=== PATIENT | female | born 1955 | race American Indian/Alaskan Native ===

== ENCOUNTER 2017-02-04 21:26 | Emergency (ER) | payer MEDICARE, OTHER ==
[2017-02-04] MEDS ORDERED: PEPCID IV ONE (22:35)
[2017-02-04] MEDS ORDERED: ZOFRAN IV ONE (22:35)
[2017-02-04] MEDS ORDERED: BENTYL PO ONE (22:35)
[2017-02-04] MEDS ORDERED: CARAFATE PO ONE (22:35)
[2017-02-04] MEDS ORDERED: NACL 0.9% 1000 ML 1,000 ML IV ONE (22:36)
--- NOTE | 2017-02-04 22:37 | Emergency Department Report ---
ED General Adult HPI - General Chief complaint: Weakness Stated complaint: DIZZINESS/DIARRHEA Time Seen by Provider: 02/04/17 22:21 Source: patient, family, EMS (ems notes not available at time of chart dictation) Mode of arrival: Ambulatory Limitations: No Limitations - History of Present Illness Initial comments: This is a 62-year-old female, she is previously unknown to this provider. She reports a past medical history of high cholesterol. The patient presents to the ER with EMS. Patient reports that she was out eating dinner this evening, felt like she had to sneeze, and then developed a strange pressure-like sensation over her head. It was all over the head, it was not painful, it is not described as sudden or intense. She reports that afterwards, she felt generally weak and "woozy", and needed help to go to the bathroom. She indicates she did not pass out or lose consciousness. Patient also indicates there is no convulsive activity. Patient further elaborates and states that last week she began to develop epigastric and lower abdominal cramping discomfort. This discomfort is intermittent, does not have exacerbating or relieving factors, does not radiate anywhere. She denies nausea and vomiting initially. She reports going to an outpatient urgent care center, reports having blood work and urinalysis done, and reports that her blood work revealed the presence of H. pylori. She reports that on Saturday she was started on 2 antibiotics, amoxicillin, and another antibiotic that she cannot recall the name of. She reports that she was fine over the weekend, and then this morning, develops episode of loose watery stool, nonbloody and nonbilious. There is no leg pain, there is no leg swelling, there is no chest pain, there is no shortness of breath, patient describes mild nausea at this time, mild lightheadedness, mild generalized weakness. -: Sudden Location: abdomen Quality: aching Consistency: intermittent Improves with: none Worsens with: none Associated Symptoms: loss of appetite, malaise, nausea/vomiting, weakness - Related Data Home Medications Medication Instructions Recorded Confirmed Last Taken Amoxicillin 500 mg PO 02/04/17 Unknown Clarithromycin [Biaxin] 02/04/17 Unknown Omeprazole 40 mg PO 02/04/17 Unknown Previous Rx's Medication Instructions Recorded Last Taken Type Dicyclomine [Bentyl] 10 mg PO QID PRN #20 capsule 02/05/17 Unknown Rx Ondansetron [Zofran Odt] 4 mg PO QID PRN #20 tab.rapdis 02/05/17 Unknown Rx Allergies Allergy/AdvReac Type Severity Reaction Status Date / Time No Known Allergies Allergy Unverified 02/05/17 00:43 ED Review of Systems ROS: Stated complaint: DIZZINESS/DIARRHEA Other details as noted in HPI Constitutional: malaise, weakness Eyes: denies: eye discharge ENT: denies: epistaxis Respiratory: denies: cough Cardiovascular: denies: chest pain Gastrointestinal: abdominal pain, diarrhea Genitourinary: denies: dysuria Musculoskeletal: arthralgia Skin: denies: lesions Neurological: weakness Psychiatric: anxiety ED Past Medical Hx - Medications Home Medications: Home Medications Medication Instructions Recorded Confirmed Last Taken Type Amoxicillin 500 mg PO 02/04/17 Unknown History Clarithromycin [Biaxin] 02/04/17 Unknown History Omeprazole 40 mg PO 02/04/17 Unknown History Dicyclomine [Bentyl] 10 mg PO QID PRN #20 capsule 02/05/17 Unknown Rx Ondansetron [Zofran Odt] 4 mg PO QID PRN #20 tab.rapdis 02/05/17 Unknown Rx ED Physical Exam - General General appearance: alert, in no apparent distress - Head Head exam: Present: atraumatic, normocephalic - Eye Eye exam: Present: normal appearance, PERRL, EOMI, other (visual acuity intact to finger counting, color perception, reading at a close distance). Absent: nystagmus - ENT ENT exam: Present: normal exam, normal orophraynx, mucous membranes moist, normal external ear exam - Neck Neck exam: Present: normal inspection, full ROM. Absent: tenderness, meningismus - Respiratory Respiratory exam: Present: normal lung sounds bilaterally. Absent: respiratory distress, wheezes, rales, rhonchi, stridor, chest wall tenderness, accessory muscle use, decreased breath sounds, prolonged expiratory - Cardiovascular Cardiovascular Exam: Present: regular rate, normal rhythm, normal heart sounds. Absent: bradycardia, tachycardia, irregular rhythm, systolic murmur, diastolic murmur, rubs, gallop - GI/Abdominal GI/Abdominal exam: Present: soft, tenderness, normal bowel sounds. Absent: distended, guarding, rebound, rigid, pulsatile mass - Extremities Exam Extremities exam: Present: normal inspection, full ROM, normal capillary refill. Absent: pedal edema, joint swelling, calf tenderness - Back Exam Back exam: Present: normal inspection, full ROM. Absent: tenderness, CVA tenderness (R), CVA tenderness (L), muscle spasm, paraspinal tenderness, vertebral tenderness - Neurological Exam Neurological exam: Present: alert, oriented X3, normal gait (normal gait. Tandem gait. Negative pronator drift. Normal [id number]. Normal finger to nose.), other. Absent: motor sensory deficit - Psychiatric Psychiatric exam: Present: normal affect, normal mood - Skin Skin exam: Present: warm, dry, intact, normal color. Absent: rash ED Course Vital Signs 02/04/17 02/04/17 02/04/17 23:00 23:15 23:30 Temperature Pulse Rate 81 82 81 Respiratory 19 17 17 Rate Blood Pressure 137/61 137/61 Blood Pressure [Left] O2 Sat by Pulse 99 99 99 Oximetry 02/04/17 02/05/17 02/05/17 23:46 00:00 00:16 Temperature Pulse Rate 80 82 80 Respiratory 19 19 16 Rate Blood Pressure 132/66 132/66 132/66 Blood Pressure [Left] O2 Sat by Pulse 98 97 99 Oximetry 02/05/17 00:43 Temperature 98.2 F Pulse Rate 82 Respiratory 24 Rate Blood Pressure 147/66 Blood Pressure 147/66 [Left] O2 Sat by Pulse 98 Oximetry - Reevaluation(s) Reevaluation #1: 02/04/17 23:32 Differential diagnosis: Antibiotic associated diarrhea, colitis, diverticulitis , perforated viscus, urinary tract infection, dehydration, electrolyte derangement, arrhythmia, vagal event, orthostasis Assessment and plan: 62-year-old female with numerous nonspecific complaints, including head pressure after a sneeze which is not painful or involved with neck pain or neck stiffness, nonspecific abdominal cramping, nausea and diarrhea. No pulmonary embolus or DVT risk factors, low risk by well's criteria , low risk by CRISTAL score, low risk by heart score. Currently alert and oriented 3, walks with a steady gait, GCS of 15, with an NIH score of 0, with no cerebellar signs. Orthostatic vital signs are negative. Patient will be treated symptomatically, noncontrast CT scan of the brain, CT scan of the abdomen and pelvis, laboratory studies, chest x-ray, EKG pending at this time. Reevaluation #2: 02/05/17 03:10 Patient reassessed by myself multiple times while in the department. No active vomiting, walking with a steady gait, reports that she feels much improved. I highly suspect that the patient had a transient vagal or orthostatic event. CT scan of the brain is negative. CT scan of the abdomen and pelvis demonstrates no acute disease or pathology, there is an incidental noncalcified nodule in the left lower lobe of the lung, patient is given a copy of her CAT scan report , she is instructed to follow-up with her outpatient primary care doctor. She will be discharged with nausea medication, nonnecrotic pain medication, return precautions are reviewed. Reevaluation #3: 02/05/17 05:30 Leukocytosis of 22 is appreciated, given the patient's history and physical, as well as her prolonged. Of observation in the ER, as well as her essentially negative objective testing, I think it is very unlikely that the patient has a serious chill infection. Leukocytosis may be secondary to stress demargination Given normal neurologic examinations and normal physical exam was repeated multiple times during her period of observation in the ER, I do not think she requires admission to the hospital at this time. ED Medical Decision Making - Lab Data Result diagrams: 02/04/17 23:55 02/04/17 23:55 - EKG Data 02/04/17 23:37 Admitting sinus, 82 bpm, will axis, normal interval high left ventricular voltage incomplete right bundle branch block, abnormal EKG, not morphologically consistent with STEMI. - Radiology Data Radiology results: image reviewed interpreted by me: X-ray of the chest is negative for acute disease Critical care attestation.: If time is entered above; I have spent that time in minutes in the direct care of this critically ill patient, excluding procedure time. ED Disposition Clinical Impression: Dizzy Disposition: DC-01 TO HOME OR SELFCARE Is pt being admited?: No Does the pt Need Aspirin: No Condition: Stable Instructions: Abdominal Pain (ED) Additional Instructions: Take the pain medication, nausea medication as directed. Continue current outpatient antibiotics. Follow up with her primary care doctor within the next month. Follow up with a crab picker within the next month. Please note that CT scan demonstrated nonspecific nodule in the left lower lung, this should be followed up by your primary care doctor in the recommended timeframe. Not following up as recommended may resultant undiagnosed tumor/ cancer/malignancy of the lung. Please return to the ER primarily with new pain , worsened pain, migration of pain, projectile vomiting, change in mental status , confusion, inability to tolerate liquid feeds. Prescriptions: Dicyclomine [Bentyl] 10 mg PO QID PRN #20 capsule PRN Reason: Pain Ondansetron [Zofran Odt] 4 mg PO QID PRN #20 tab.rapdis PRN Reason: Nausea Referrals: PRIMARY CARE, [Primary Care Provider] - 3-5 Days YAHAIRA BORRERO MD [Staff Physician] - 3-5 Days GISSEL KELLY MD [Staff Physician] - 3-5 Days [facility] [Provider Group] - 3-5 Days
[2017-02-04 23:47] LABS: Bilirubin,Urine NEG (Negative); Blood,Urine NEG (Negative); Ketones,Urine NEG (Negative); Leukocyte Esterase,Urine NEG (Negative); Mucus,Urine FEW /HPF; Nitrite,Urine NEG (Negative); RBC,Urine < 1.0 /HPF (0.0-6.0); Urobilinogen,Urine < 2.0 mg/dL (<2.0)
[2017-02-05 00:27] LABS: Hematocrit 40.8 % (30.3-42.9); Hemoglobin 12.6 gm/dl (10.1-14.3); Mean Corpuscular HGB Conc 31 % (30-34); Mean Corpuscular Hemoglobin 26 pg (28-32); Mean Corpuscular Volume 85 fl (79-97); Platelet Count 294 K/mm3 (140-440); Red Blood Count 4.82 M/mm3 (3.65-5.03)
[2017-02-05 00:28] LABS: White Blood Count 22.3 K/mm3 (4.5-11.0)
[2017-02-05 00:38] LABS: INR 1.01 (0.87-1.13)
[2017-02-05 00:47] LABS: Alanine Aminotransferase 20 units/L (7-56); Albumin 4.1 g/dL (3.9-5); Albumin/Globulin Ratio 1.1 %; Alkaline Phosphatase 83 units/L (35-129); Anion Gap 18 mmol/L; BUN/Creatinine Ratio 24.28; Blood Urea Nitrogen 17 mg/dL (7-17); Calcium 9.3 mg/dL (8.4-10.2); Carbon Dioxide 23 mmol/L (22-30); Chloride 101.4 mmol/L (98-107); Glucose 133 mg/dL (65-100); Potassium 4.8 mmol/L (3.6-5.0); Sodium 138 mmol/L (137-145); Total Protein 7.7 g/dL (6.3-8.2)
[2017-02-05 01:09] VITALS: BP 147/66
[2017-02-05] MEDS ORDERED: NACL ONE (01:26)
--- NOTE | 2017-02-05 02:16 | Cat Scan Report ---
FINAL REPORT EXAM: CT HEAD/BRAIN WO CON HISTORY: barros near syncope COMPARISON: None available. TECHNIQUE: Axial images obtained skull base through vertex. FINDINGS: No acute intracranial hemorrhage, midline shift or pathologic extra axial fluid collection. Mild chronic small vessel ischemic disease. Partially empty sella, benign finding. Ventricles and cisterns are normal in size and configuration for the patient's age. Fermin-white differentiation preserved. Calvarium grossly intact. Visualized orbits are grossly unremarkable. Visualized para-nasal sinuses and mastoid air cells are clear. IMPRESSION: No grossly acute intracranial abnormality. Mild chronic small vessel ischemic disease.
--- NOTE | 2017-02-05 02:33 | Cat Scan Report ---
FINAL REPORT EXAM: CT ABDOMEN PELVIS W CON HISTORY: abd pain COMPARISON: None available. TECHNIQUE: Contiguous axial images were obtained. Additional sagittal and coronal reformatted images were obtained. Administration of IV contrast given per institution protocol. Images submitted for interpretation. 100 cc Omnipaque [id number]. FINDINGS: 3 millimeter calcified granuloma within the lingula. Tiny hiatal hernia. Noncalcified nodule left lower lobe measuring 5 millimeters. Mild subsegmental atelectasis at the lung bases. No calcified gallstones or biliary dilatation. Very mild fatty infiltration of the liver. No focal enhancing hepatic mass. Spleen and pancreas are grossly unremarkable. No adrenal mass. No solid renal lesion. No hydronephrosis. Aorta and IVC normal in caliber. Mild to moderate calcified plaque along the iliac arteries. Urinary bladder is grossly unremarkable. Uterus is surgically absent. Multiple pelvic phleboliths. No free fluid or lymphadenopathy in the pelvic cavity. Probable prior appendectomy. Large and small bowel loops normal in caliber. No focal inflammatory changes the bowel. Mild degenerative changes of lumbar spine. Lumbar vertebral body heights are preserved. Bony pelvis is grossly intact. IMPRESSION: No focal inflammatory changes of the abdomen and pelvis. 5 millimeter noncalcified nodule left lower lobe likely postinflammatory. If the patient has risk factors such as smoking, followup chest CT in 12 months could be performed. 3 millimeter calcified granuloma in the lingula.
--- NOTE | 2017-02-05 07:47 | XRay Report ---
AP CHEST: HISTORY: Weakness, syncope. AP view of the chest demonstrates a normal mediastinal and cardiac contour with clear lungs and normal bony and soft tissue structures. IMPRESSION: Unremarkable AP chest.
== END 2017-02-05 03:55 | disposition home or self-care (01) ==
LOC: ED 21:26
DX: R42 Dizziness and giddiness (principal)
CPT/HCPCS: 36415; 70450; 71010; 74177; 80053; 81001; 83735; 84484; 85027; 85610; 93005; 93010; 96361; 96374; 96375; 99285; J2405; J7030; Q9967